=== PATIENT | male | born 1940 | race Caucasian/White ===

== ENCOUNTER 2017-06-24 20:33 | Emergency (ER) | payer BC, OTHER ==
[~2017-06-24] VITALS: Ht 167.6 cm; Wt 80.4 kg
[2017-06-24 20:39] VITALS: TEMP 36.7; Ht 167.6 cm; Wt 80.4 kg
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
[2017-06-24] MEDS ORDERED: DIPHTHERIA/TETANUS/PERTUSSIS 0.5 ML SYR/VIAL IM. ONE (22:00)
[2017-06-24 22:14] VITALS: BP 155/87; PULSE 94; O2SAT 96
== END 2017-06-24 23:02 | disposition home or self-care (01) ==
LOC: EDBD 20:33 → C.EDB 20:35
DX: S49.92XA Unspecified injury of left shoulder and upper arm, initial encounter (principal); M25.512 Pain in left shoulder; M25.562 Pain in left knee; S61.411A Laceration without foreign body of right hand, initial encounter; S61.412A Laceration without foreign body of left hand, initial encounter; V43.52XA Car driver injured in collision with other type car in traffic accident, initial encounter; Y92.415 Exit ramp or entrance ramp of street or highway as the place of occurrence of the external cause; M17.12 Unilateral primary osteoarthritis, left knee